=== PATIENT | male | born 1960 ===

== ENCOUNTER 2017-06-27 08:17 | Emergency (ER) | payer SELFPAY ==
[2017-06-27 08:19] VITALS: BMI 41.0
[2017-06-27 08:20] VITALS: PULSE 75; RESP 20; TEMP 98.1; O2SAT 98
[2017-06-27 08:45] VITALS: BP 156/100
[2017-06-27] MEDS ORDERED: Lidocaine 5% Patch TD STA (09:04)
--- NOTE | 2017-06-27 09:21 | ED PDOC ---
HPI: Back Time Seen by Provider: 06/27/17 08:56 Chief Complaint (Nursing): Back Pain Chief Complaint (Provider): Back pain History Per: Patient History/Exam Limitations: no limitations Onset/Duration Of Symptoms: Days (1 week) Current Symptoms Are (Timing): Still Present Additional Complaint(s): Low back pain ongoing for 1 week. Ambulates with the pain. No numbness, tingles, weakness, headaches incontinence, constipation, testicular pain, dysuria. No fever, abd pain, chest pain. Pain going down left leg. Pt. has had same pain for a long time. It comes and goes. Comes with the weather change and this is what happen this time. Sees Dr. Reyes. Last time was given muscle relaxant. Past Medical History Reviewed: Nursing Documentation, Vital Signs Vital Signs: Last Vital Signs Temp 98.1 F 06/27/17 08:19 Pulse 75 06/27/17 08:19 Resp 20 06/27/17 08:19 BP 156/100 H 06/27/17 08:44 Pulse Ox 98 06/27/17 08:19 - Medical History PMH: Atrial Fibrillation, Back Problems, Diabetes, HTN, Hypothyroidism Denies: Chronic Kidney Disease - Surgical History Surgical History: No Surg Hx - Family History Family History: States: Unknown Family Hx - Social History Current smoker - smoking cessation education provided: No Alcohol: None Drugs: Denies - Home Medications Home Medications: Ambulatory Orders Medication Instructions Recorded Aspirin [Aspirin Chewable] 81 mg PO DAILY #0 chew 03/13/16 Enalapril Maleate [Vasotec] 10 mg PO DAILY #30 tab 03/13/16 Levothyroxine [Synthroid] 50 mcg PO DAILY #30 tab 03/13/16 Metoprolol Tartrate [Lopressor] 50 mg PO BID #60 tab 03/13/16 Rivaroxaban [Xarelto] 20 mg PO DAILY #30 tablet 03/13/16 metFORMIN [glucOPHAGE] 1,000 mg PO BID #30 tab 03/13/16 Cyclobenzaprine [Cyclobenzaprine 10 mg PO Q12H PRN #15 tab 07/18/16 HCl] Ibuprofen [Motrin] 600 mg PO TID 7 Days 06/27/17 - Allergies Allergies/Adverse Reactions: Allergies Allergy/AdvReac Type Severity Reaction Status Date / Time No Known Allergies Allergy Verified 07/18/16 15:42 Review of Systems ROS Statement: Except As Marked, All Systems Reviewed And Found Negative Musculoskeletal: Positive for: Back Pain Physical Exam - Reviewed Nursing Documentation Reviewed: Yes - Physical Exam Appears: Positive for: Non-toxic, No Acute Distress Head Exam: Positive for: ATRAUMATIC, NORMAL INSPECTION, NORMOCEPHALIC Skin: Positive for: Normal Color, Warm, DRY Neck: Positive for: Normal, Painless ROM Cardiovascular/Chest: Positive for: Regular Rate, Rhythm Respiratory: Positive for: CNT, Normal Breath Sounds Gastrointestinal/Abdominal: Positive for: Normal Exam, Bowel Sounds, Soft. Negative for: Tenderness Back: Positive for: Other (mild tender left lower; no deformity or echymosis). Negative for: L CVA Tenderness, R CVA Tenderness Extremity: Positive for: Normal ROM Neurologic/Psych: Positive for: Alert, Oriented - ECG O2 Sat by Pulse Oximetry: 98 Pulse Ox Interpretation: Normal - Radiology X-Ray: Interpreted by Me, Viewed By Me X-Ray Interpretation: No Acute Disease - Progress ED Course And Treament: 926: Spoke with Dr. Reyes. States he will fu with pt. outpt. 1004: Stable. AAOx3. Pain free. Tolerated PO. Fu with pcp. Ambulated with no issues. Disposition - Clinical Impression Clinical Impression: Chronic back pain - Patient ED Disposition Is Patient to be Admitted: No Counseled Patient/Family Regarding: Studies Performed, Diagnosis, Need For Followup, Rx Given - Disposition Referrals: Jim Reyes MD [Staff Provider] - 06/28/17 Disposition: Routine/Home Disposition Time: 10:05 Condition: STABLE Additional Instructions: Return if not better in 3 days. Prescriptions: Ibuprofen [Motrin] 600 mg PO TID 7 Days Instructions: Chronic Pain (ED) Forms: [employer] ([place])
--- NOTE | 2017-06-27 10:54 | RAD ---
Lumbar spine 06/27/2017 PROCEDURE: HISTORY: back pain COMPARISON: Comparison made with prior radiographs lumbar spine 07/18/2016 FINDINGS: BONES: No acute compression fractures no retropulsed fragments. Vertebral bodies exhibit relatively normal stature. Mild straightening of the normal lumbar lordosis Vertebral bodies and facets are otherwise normally aligned. DISC SPACES: Minor posterior disc space narrowing seen at several levels. Disc space heights are otherwise maintained. Small marginal anterolateral osteophyte formation seen at several levels. . OTHER FINDINGS: None. IMPRESSION: No acute fractures. Minor multilevel degenerative spondylosis. Consider followup CT scan or MRI if further evaluation is required if clinically indicated
== END 2017-06-27 10:15 | disposition home or self-care (01) ==
LOC: H.ER 08:17
DX: M54.9 Dorsalgia, unspecified (principal); E03.9 Hypothyroidism, unspecified; E11.9 Type 2 diabetes mellitus without complications; G89.29 Other chronic pain; I10 Essential (primary) hypertension; Z79.01 Long term (current) use of anticoagulants; Z79.82 Long term (current) use of aspirin; Z79.84 Long term (current) use of oral hypoglycemic drugs
CPT/HCPCS: 72114; 96372; 99283; J1885